=== PATIENT | male | born 1965 | race Caucasian/White ===

== ENCOUNTER 2017-03-03 08:02 | Day surgery (SDC) | payer OTHER ==
[2017-03-03] MEDS ORDERED: Versed 2 MG/2 ML Injection IV ONE (08:03)
[2017-03-03] MEDS ORDERED: DIPRIVAN 200 MG/20 ML IV ONE (08:03)
--- NOTE | 2017-03-03 08:58 | HP ---
DATE OF SURGERY: 03/03/2017 HISTORY OF PRESENT ILLNESS: The patient is a 51 year-old with no prior colonoscopy with occasional rectal bleeding on occasion. No change in bowel movements except Metformin change, has alternating diarrhea and constipation. No pain. Currently he did have intermittent left lower quadrant aches but none currently. Family history negative for inflammatory bowel disease, negative for colon cancer. He is in need of screening colonoscopy. PAST MEDICAL HISTORY: Diabetes, asthma, some reflux. PAST SURGICAL HISTORY: Cholecystectomy. MEDICATIONS: Aspirin, omeprazole, duloxetine, Fenofibrate, Lyrica, Metformin, pramipexole, testosterone shot. ALLERGIES: NKDA. FAMILY HISTORY: Diabetes, heart disease. Myocardial infarction in the family. SOCIAL HISTORY: One pack smoked per week. He denies alcohol use. REVIEW OF SYSTEMS: Twelve systems reviewed. No chest pain or palpitations other systems negative or noncontributory as above and per preadmission questionnaire. PHYSICAL EXAMINATION: GENERAL: No acute distress. HEENT: Sclerae nonicteric. NECK: No JVD. CHEST: Equal excursion, nonlabored breathing. Clear to auscultation. CVS: Regular rate and rhythm. ABDOMEN: Soft. No peritoneal signs. EXTREMITIES: No significant edema. NEURO: Alert, moving extremities symmetrically. No gross motor deficits noted. RECTAL: Deferred timed to endoscopy exam. IMPRESSION: A 51 year-old gentleman with no prior colonoscopy. He is in need of screening colonoscopy. He was shown the risk sheet and explained the procedure in detail. But not limited to bleeding or infection, small risk of bowel injury or perforation possibly requiring open procedure, small risk of missed or nondiagnosis or incomplete exam possibly requiring barium enema, other studies or procedures, general risk of anesthesia or sedation, risk of bowel prep, postoperative risk of nausea or cramping but not limited to. He understands and agrees to the planned procedure and will proceed will proceed with outpatient screening colonoscopy.
[2017-03-03] MEDS ORDERED: Sodium Chloride 0.9% 1000 ML 1,000 ML IV SCH (09:00)
[2017-03-03] MEDS ORDERED: Lactated Ringers 1,000 ML IV ONE (11:38)
[2017-03-03 12:19] VITALS: O2SAT 94
[2017-03-03 12:38] VITALS: BP 130/76; PULSE 65
--- NOTE | 2017-03-04 07:32 | OP ---
SURGERY DATE: 03/03/17 SURGERY TIME: 1109 PREOPERATIVE DIAGNOSIS: 1. NEED FOR SCREENING COLONOSCOPY. POSTOPERATIVE DIAGNOSIS: 1. POOR PREP LIMITING THE EXAM. 2. SOME DIVERTICULOSIS. 3. SMALL RAISED LESION TRANSVERSE COLON, SIGMOID COLON, RECTOSIGMOID, AND RECTUM. 4. SMALL INTERNAL/EXTERNAL HEMORRHOIDS. PROCEDURE: 1. Colonoscopy to cecum. 2. Hot biopsy small raised lesion transverse colon, sigmoid colon, rectosigmoid colon, and rectum. SURGEON: Dr. Vinny Ogden. ANESTHESIA: MAC. ESTIMATED BLOOD LOSS: Minimal. INDICATIONS: As noted above. Risks and benefits explained in detail, but not limited to. Consent was obtained. DESCRIPTION OF PROCEDURE AND FINDINGS: The patient was taken to the OR. MAC anesthesia was introduced. After official time-out, digital rectal exam did not reveal any rectal masses. He did have small internal/external hemorrhoids. Video colonoscope inserted and passed up through the very poor prep; large amount of stool, liquidy, semisolid, and solid stool. The scope was slowly, carefully navigated up through the sigmoid, descending, and transverse colon around. With external pressure, the scope was able to be passed around to the cecum. The appendiceal orifice and valve well visualized. Prep overall was quite poor with several areas of liquidy, semisolid stool limiting the exam. The scope was slowly, carefully withdrawn suction irrigating the stool as well as possible, but did limit the exam for small lesions. There were no signs of any large polyps, masses, or obstructing lesions. Had some small raised lesions vs early polyp vs hyperplastic lesion transverse colon, sigmoid colon, and rectosigmoid colon removed with hot biopsy forceps. Otherwise, he had some diverticulosis. Had some small internal/external hemorrhoids. There were no signs of any large polyps, masses, or obstructing lesions with the very poor prep very much limiting the exam. It was felt that these polyps were benign and might benefit from follow-up colonoscopy in 3 years given his very poor prep. Findings discussed with the family out in the waiting area.
== END 2017-03-03 12:45 | disposition home or self-care (01) ==
LOC: SDC 08:02
PROVIDERS: ATTEND Surgery
PROC: 0DBP8ZX Excision of Rectum, Via Natural or Artificial Opening Endoscopic, Diagnostic (ICD-10-PCS; principal; 2017-03-03)
PROC: 0DBL8ZX Excision of Transverse Colon, Via Natural or Artificial Opening Endoscopic, Diagnostic (ICD-10-PCS; 2017-03-03)
PROC: 0DBN8ZX Excision of Sigmoid Colon, Via Natural or Artificial Opening Endoscopic, Diagnostic (ICD-10-PCS; 2017-03-03)
DX: Z12.11 Encounter for screening for malignant neoplasm of colon (principal); K57.30 Diverticulosis of large intestine without perforation or abscess without bleeding; K64.4 Residual hemorrhoidal skin tags; K64.8 Other hemorrhoids; K63.9 Disease of intestine, unspecified
CPT/HCPCS: 00810; 36415; 82962; 88305; J2250; J2704